=== PATIENT | male | born 1990 | race Caucasian/White ===

== ENCOUNTER 2017-04-03 18:00 | Emergency (ER) | payer SELFPAY ==
[2017-04-03 18:08] VITALS: TEMP 97.4
[2017-04-03 19:35] VITALS: BP 102/72; PULSE 93; RESP 18; O2SAT 100
--- NOTE | 2017-04-03 19:46 | C.PDOC ---
History Of Present Illness 26 year old male presents to the ED with fiance for evaluation of alcohol intoxication. Patient's fiance states that they got into a verbal disagreement at home, and patient consumed alcohol and became intoxicated and stuporous. Patient denies suicidal/homicidal ideation and has no physical complaints at this time. Time Seen by Provider: 04/03/17 18:50 Chief Complaint (Nursing): Substance Abuse History Per: Patient, Family History/Exam Limitations: intoxication Onset/Duration Of Symptoms: Hrs Current Symptoms Are (Timing): Still Present Suicide/Self Injury Attempted (Context): None Modifying Factor(s): Alcohol Associated Symptoms: denies: Suicidal Thoughts, Suicidal Plan Involuntary Hold By: None Recent travel outside of the [place]: No Additional History Per: Patient Past Medical History Reviewed: Historical Data, Nursing Documentation, Vital Signs Vital Signs: Last Vital Signs Temp 97.4 F L 04/03/17 18:06 Pulse 93 H 04/03/17 19:34 Resp 18 04/03/17 19:34 BP 102/72 04/03/17 19:34 Pulse Ox 100 04/03/17 20:39 - Medical History PMH: No Chronic Diseases Surgical History: No Surg Hx Family History: States: Unknown Family Hx - Social History Hx Alcohol Use: Yes Hx Substance Use: No - Immunization History Hx Tetanus Toxoid Vaccination: No Hx Influenza Vaccination: No Hx Pneumococcal Vaccination: No Review Of Systems Psych: Positive for: Other (EtOH intoxication ). Negative for: Suicidal ideation Physical Exam - Physical Exam Appears: Non-toxic, No Acute Distress, Other (stuporous, cooperative, visibly intoxicated ) Skin: Normal Color, Warm, Dry Head: Atraumatic, Normacephalic Eye(s): bilateral: Normal Inspection Oral Mucosa: Moist, Other (alcohol on breath ) Neck: Supple Chest: Symmetrical, No Deformity, No Tenderness Cardiovascular: Rhythm Regular, No Murmur Respiratory: Normal Breath Sounds, No Rales, No Rhonchi, No Wheezing Extremity: Normal ROM, Capillary Refill (less than 2 seconds ) Neurological/Psych: Other (arousable to touch and verbal stimuli ) Gait: Unsteady ED Course And Treatment O2 Sat by Pulse Oximetry: 100 (on RA) Pulse Ox Interpretation: Normal Reevaluation Time: 19:40 Reassessment Condition: Improved (clinically sober, coherent, fiance @ bedside to take home safely.) Medical Decision Making Medical Decision Making: alcohol abuse, no other substances ok to home with safe ride to achieve sobriety. Disposition Doctor Will See Patient In The: Office Counseled Patient/Family Regarding: Studies Performed, Diagnosis - Disposition Referrals: [facility] [Outside] [facility] [Outside] Disposition: HOME/ ROUTINE Disposition Time: 19:46 Condition: GOOD Additional Instructions: avoid alcohol abuse Seek AA as needed. Instructions: Abuse of Alcohol (ED) Forms: [employer] (Kyrgyz) - Clinical Impression Clinical Impression: Alcohol abuse - Scribe Statement The provider has reviewed the documentation as recorded by the Scribe (Bertha Lerma) Provider Attestation: All medical record entries made by the Scribe were at my direction and personally dictated by me. I have reviewed the chart and agree that the record accurately reflects my personal performance of the history, physical exam, medical decision making, and the department course for this patient. I have also personally directed, reviewed, and agree with the discharge instructions and disposition.
== END 2017-04-03 19:52 | disposition home or self-care (01) ==
LOC: C.ER 18:00
DX: F10.10 Alcohol abuse, uncomplicated (principal); Y90.9 Presence of alcohol in blood, level not specified